=== PATIENT | female | born 1985 | race Caucasian/White ===

== ENCOUNTER 2019-01-24 01:15 | Outpatient (CLI) | payer OTHER ==
[~2019-01-24 01:15] MED LIST: ACETAMINOPHEN500 M1 PO; IRON18 MG PO; Mylicon 125MG PO; PRENATABS RX T1 EACH PO; PREPLUS CA-FE1 EACH PO
== END 2019-01-24 18:10 | disposition home or self-care (01) ==
LOC: OBS/DEL 01:15
DX: O60.03 Preterm labor without delivery, third trimester (principal); Z34.83 Encounter for supervision of other normal pregnancy, third trimester

== ENCOUNTER 2019-02-10 11:54 | Inpatient (IN) | payer OTHER ==
[~2019-02-10] VITALS: Ht 152.4 cm; Wt 2.7 kg
[2019-02-18] MEDS ORDERED: ACETAMINOPHEN500 M1 PO (10:13)
[2019-02-18] MEDS ORDERED: PREPLUS CA-FE1 EACH PO (10:13)
[2019-02-18] MEDS ORDERED: SENNA8.6 MG PO (10:13)
[2019-02-18] MEDS ORDERED: GAS RELIEF125 MG PO (10:13)
== END 2019-02-18 12:21 | disposition home or self-care (01) | DRG 785 ==
LOC: OB/GYN 02-15 05:47 → O/R 02-15 05:47 → OB/GYN 02-15 16:00
PROVIDERS: ADMIT Obstetrics & Gynecology
PROC: 0UL70ZZ Occlusion of Bilateral Fallopian Tubes, Open Approach (ICD-10-PCS; 2019-02-15)
PROC: 4A1HXCZ Monitoring of Products of Conception, Cardiac Rate, External Approach (ICD-10-PCS; 2019-02-15)
PROC: 10D00Z1 Extraction of Products of Conception, Low, Open Approach (ICD-10-PCS; principal; 2019-02-15 14:45)
DX: O82 Encounter for cesarean delivery without indication (principal); Z3A.39 39 weeks gestation of pregnancy; Z37.0 Single live birth; Z30.2 Encounter for sterilization